=== PATIENT | male | born 1965 | race Caucasian/White ===

== ENCOUNTER 2016-08-17 07:32 | Emergency (ER) | payer SELFPAY ==
[2016-08-17 07:48] VITALS: RESP 16; TEMP 96.8
[2016-08-17 09:01] VITALS: BP 193/106; PULSE 83; O2SAT 93
== END 2016-08-17 08:33 | disposition home or self-care (01) | DRG 159 ==
LOC: ED 07:32
DX: K04.7 Periapical abscess without sinus (principal); K05.10 Chronic gingivitis, plaque induced
CPT/HCPCS: 99282

== ENCOUNTER 2016-09-05 21:04 | Emergency (ER) | payer SELFPAY ==
[2016-09-05 21:43] LABS: BASOPHILS % (AUTO) 1 % (0-3); EOSINOPHILS % (AUTO) 3 % (0-9); HEMATOCRIT 42 % (39-53); MEAN CORPUSCULAR HGB CONC 36.3 gm/dl (32.0-36.0); MEAN CORPUSCULAR VOLUME 88 fL (80-100); MONOCYTES % (AUTO) 8.7 % (0-12); NEUTROPHILS % (AUTO) 55.6 % (37-80)
[2016-09-05] MEDS ORDERED: SODIUM CHLORIDE 0.9% 1000ML 1,000 ML IV SCH (21:45)
[2016-09-05 21:57] VITALS: BP 111/49; PULSE 83; RESP 20; TEMP 99; O2SAT 95
[2016-09-05 22:00] LABS: ALBUMIN 3.2 gm/dl (3.4-5.0); ALT 56 IU/L (14-63); CALCIUM 8.5 mg/dl (8.5-10.1); GLOM FILT RATE 92 mL/min (>60); POTASSIUM 3.4 mMol/L (3.5-5.1); SODIUM 131 mMol/L (136-145)
== END 2016-09-05 22:29 | disposition home or self-care (01) | DRG 897 ==
LOC: ED 21:04
DX: F10.129 Alcohol abuse with intoxication, unspecified (principal); Y90.6 Blood alcohol level of 120-199 mg/100 ml
CPT/HCPCS: 36415; 80053; 80307; 84484; 85025; 93005; 96365; 99284

== ENCOUNTER 2017-02-08 10:00 | Emergency (ER) | payer SELFPAY ==
[2017-02-08 10:10] VITALS: RESP 20; TEMP 97.6
[2017-02-08 12:43] VITALS: BP 138/82; PULSE 103; O2SAT 100
== END 2017-02-08 11:01 | disposition home or self-care (01) | DRG 204 ==
LOC: ED 10:00
DX: R05 Cough (principal); Z20.828 Contact with and (suspected) exposure to other viral communicable diseases; Z72.0 Tobacco use
CPT/HCPCS: 71020; 87430; 87804; 99283